=== PATIENT | female | born 1945 | race Caucasian/White ===

== ENCOUNTER 2024-04-18 07:34 | Observation (INO) | payer MEDICARE ==
[2024-04-18] VITALS (7 sets, daily range): BP systolic 93–98; BP diastolic 50–56; TEMP 96.8–98.8; O2SAT 87–91
[~2024-04-18] VITALS: Ht 170.2 cm; Wt 46.4 kg
[~2024-04-18 07:34] MED LIST: ALBU8.5H INH; B-122500 PO; BRIM5DRO15 OU; CALCCAP4 PO; NETA2.5D2 OU; OMEG10002 PO; SIMV40TA20 PO; VENTAER INH; VITA100093 PO; [UNRECOGNIZED DRUG - CODE] PO
[2024-04-18] MEDS ORDERED: dexmedeTOMIDine (4MCG/ML)200MCG/50ML BTL (PRECEDEX) As Ordered ONE (08:30)
[2024-04-18] MEDS ORDERED: ROCURONIUM BROMIDE 50MG/5ML VIAL As Ordered ONE (08:30)
[2024-04-18] MEDS ORDERED: fentaNYL 250 MCG/5 ML INJECTION As Ordered ONE (08:30)
[2024-04-18] MEDS ORDERED: LIDOCAINE 2% 100MG/5ML SDV (FOR ANES.) As Ordered ONE (08:30)
[2024-04-18] MEDS ORDERED: ONDANSETRON 4MG 2ML VIAL As Ordered ONE (08:30)
[2024-04-18] MEDS ORDERED: MIDAZOLAM INJ 2MG/2ML VIAL As Ordered ONE (08:30)
[2024-04-18] MEDS ORDERED: propofoL 200 MG/20 ML VIAL As Ordered ONE (08:31)
[2024-04-18] MEDS ORDERED: PRES10CA2 PO (08:35)
[2024-04-18] MEDS ORDERED: BRIN8DRO OU (08:35)
[2024-04-18] MEDS ORDERED: HOME MED LIST COMPLETE! XX SCH (08:40)
[2024-04-18] MEDS: LR 1,000 ML IV SCH ×2 (08:49→13:25)
[2024-04-18] MEDS ORDERED: SEVOFLURANE INHAL SOLN 250 ML BTL As Ordered ONE (09:48)
[2024-04-18] MEDS: HEPARIN SOD (PORCINE) 5000UNITS/ML 1ML VIAL/SYRINGE SQ ONE (10:45)
[2024-04-18] MEDS: ceFAZolin SOD 2 GM in IV 1 EA IV ONE (10:53)
[2024-04-18] MEDS: GENTAMICIN SULF 80MG/2ML VIAL As Ordered ONE (11:11)
[2024-04-18] MEDS ORDERED: ACETAMINOPHEN 1000MG 100ML IV BAG As Ordered ONE (11:18)
[2024-04-18] MEDS ORDERED: LACRILUBE (AKWA TEARS) OPHTH OINT 3.5GM As Ordered ONE (11:18)
[2024-04-18] MEDS ORDERED: SUGAMMADEX SODIUM 500 MG/5 ML VIAL (BRIDION) As Ordered ONE (11:18)
[2024-04-18] MEDS ORDERED: diphenhydrAMINE 50MG/ML VIAL As Ordered ONE (12:38)
[2024-04-18] MEDS ORDERED: oxyCODONE 5MG TAB PO PRN (12:40)
[2024-04-18] MEDS ORDERED: ONDANSETRON 4MG 2ML VIAL IV PRN ×2 (12:40→13:25)
[2024-04-18] MEDS ORDERED: fentaNYL 100 MCG/2 ML INJECTION IV PRN (12:40)
[2024-04-18] MEDS ORDERED: traMADol 50 MG TAB PO PRN (13:25)
[2024-04-18] MEDS ORDERED: ACETAMINOPHEN TAB 650MG DOSE (2X325MG) PO PRN (13:25)
[2024-04-18] MEDS ORDERED: PERCOCET 5MG/325MG TAB PO PRN (13:25)
[2024-04-18] MEDS: ceFAZolin SOD 2 GM in IV 1 EA IV SCH (18:52)
[2024-04-19 00:04] VITALS: BP 104/60; TEMP 97.9; O2SAT 94
[2024-04-19 03:54] VITALS: BP 104/60; TEMP 98.1; O2SAT 94
[2024-04-19 07:55] VITALS: BP 96/62; TEMP 97.5; O2SAT 92
[2024-04-19] MEDS ORDERED: AUGM500T34 PO (09:56)
== END 2024-04-19 11:00 | disposition home or self-care (01) ==
LOC: M SDC 07:34 → M ED INP 07:35 → M MS5PR 11:40
PROVIDERS: ADMIT Plastic Surgery Surgery of the Hand; ATTEND Plastic Surgery Surgery of the Hand
DX: T85.44XA Capsular contracture of breast implant, initial encounter (principal); T85.41XA Breakdown (mechanical) of breast prosthesis and implant, initial encounter; Z85.3 Personal history of malignant neoplasm of breast; E78.00 Pure hypercholesterolemia, unspecified; Z87.891 Personal history of nicotine dependence
CPT/HCPCS: 19342; 71045; 88300; 88302; 96365; 96366; C9290; G0378; J0131; J0665; J0690; J1100; J1200; J1580; J2250; J2405; J3010; L8600

== ENCOUNTER 2025-01-13 09:35 | Observation (INO) | payer MEDICARE, OTHER ==
[2025-01-13] VITALS (7 sets, daily range): BP systolic 95–122; BP diastolic 51–77; TEMP 96.8–97.7; O2SAT 89–97
[~2025-01-13] VITALS: Ht 170.2 cm; Wt 47.2 kg
[~2025-01-13 09:35] MED LIST changes: +AUGM500T34 PO; +BRIN8DRO OU; +CYAN500T20 PO; +PRES10CA2 PO; +THERTAB52 PO; +TREL1AER INH
[2025-01-13] MEDS ORDERED: dexmedeTOMIDine (4MCG/ML)200MCG/50ML BTL (PRECEDEX) As Ordered ONE (10:09)
[2025-01-13] MEDS ORDERED: MIDAZOLAM INJ 2MG/2ML VIAL As Ordered ONE (10:09)
[2025-01-13] MEDS ORDERED: propofoL 200 MG/20 ML VIAL As Ordered ONE (10:09)
[2025-01-13] MEDS ORDERED: ROCURONIUM BROMIDE 50MG/5ML VIAL As Ordered ONE (10:09)
[2025-01-13] MEDS ORDERED: ONDANSETRON 4MG 2ML VIAL As Ordered ONE (10:09)
[2025-01-13] MEDS ORDERED: fentaNYL 250 MCG/5 ML INJECTION As Ordered ONE (10:09)
[2025-01-13] MEDS ORDERED: LIDOCAINE 2% 100MG/5ML SDV (FOR ANES.) As Ordered ONE (10:16)
[2025-01-13] MEDS: LR 1,000 ML IV SCH ×2 (10:28→16:56)
[2025-01-13] MEDS: ceFAZolin SOD 2 GM IV ONCE IV ONE (13:15)
[2025-01-13] MEDS ORDERED: LACRILUBE (AKWA TEARS) OPHTH OINT 3.5GM As Ordered ONE (13:20)
[2025-01-13] MEDS ORDERED: PHENYLephrine 500MCG 5ML (100MCG/ML) SYRINGE As Ordered ONE (13:39)
[2025-01-13] MEDS ORDERED: ePHEDrine SULFATE 25 MG/5 ML(5MG/ML) SYRINGE As Ordered ONE (13:39)
[2025-01-13] MEDS ORDERED: ACETAMINOPHEN 1000MG/100ML IV BAG As Ordered ONE (13:41)
[2025-01-13] MEDS: GENTAMICIN SULF 80MG/2ML VIAL As Ordered ONE (14:24)
[2025-01-13] MEDS: BUPivacaine LIPOSOME/PF 266MG 20ML VIAL (13.3MG/ML)(EXPAREL) As Ordered ONE (15:00)
[2025-01-13] MEDS ORDERED: ONDANSETRON 4MG 2ML VIAL IV PRN ×2 (15:30→15:40)
[2025-01-13] MEDS ORDERED: HYDROMORPHONE HCL 0.5 MG/ 0.5 ML SYRINGE IV PRN (15:30)
[2025-01-13] MEDS ORDERED: oxyCODONE 5MG TAB PO PRN (15:30)
[2025-01-13] MEDS ORDERED: MEPERIDINE 25 MG/ML 1ML VIAL IV PRN (15:30)
[2025-01-13] MEDS ORDERED: fentaNYL 100 MCG/2 ML INJECTION IV PRN (15:30)
[2025-01-13] MEDS ORDERED: traMADol 50 MG TAB PO PRN (15:40)
[2025-01-13] MEDS ORDERED: ACETAMINOPHEN 325 MG TAB PO PRN (15:40)
[2025-01-13] MEDS ORDERED: ALBUTEROL 90 MCG/ACT 8GM HFA INHALER INH PRN (15:40)
[2025-01-13] MEDS ORDERED: PERCOCET 5MG/325MG TAB PO PRN (15:40)
[2025-01-13] MEDS ORDERED: HOME MED LIST COMPLETE! XX SCH (18:40)
[2025-01-13] MEDS: ceFAZolin SODIUM 2 GM in DEXTROSE 5% (D5W) ADV/MINI-BAG 50 ML IV SCH (20:26)
[2025-01-14 04:32] VITALS: BP 94/50; TEMP 97.9; O2SAT 91
[2025-01-14 08:00] VITALS: BP 105/58; TEMP 97.3; O2SAT 92
[2025-01-14] MEDS: SIMVASTATIN 40 MG TAB PO SCH (08:03)
== END 2025-01-14 10:20 | disposition home or self-care (01) ==
LOC: M SDC 09:35 → M MS5PR 09:36
PROVIDERS: ADMIT Plastic Surgery Surgery of the Hand; ATTEND Plastic Surgery Surgery of the Hand
DX: T85.43XA Leakage of breast prosthesis and implant, initial encounter (principal); J44.9 Chronic obstructive pulmonary disease, unspecified; Z85.3 Personal history of malignant neoplasm of breast; E55.9 Vitamin D deficiency, unspecified; E78.5 Hyperlipidemia, unspecified; F41.9 Anxiety disorder, unspecified; Z92.3 Personal history of irradiation
CPT/HCPCS: 87070; 87075; 87077; 87186; 87205; 88173; 88300; 88302; 88305; 96361; 96365; 96366; G0378; J0131; J0665; J0666; J0690; J1100; J1580; J2250; J2371; J2405; J3010; L8600